=== PATIENT | female | born 1935 | race Caucasian/White ===

== ENCOUNTER 2023-04-06 14:21 | Emergency (ER) | payer MEDICARE ==
[2023-04-06 14:50] VITALS: TEMP 97.5
--- NOTE | 2023-04-06 15:18 | XRAY ---
Indication: Cough. Comparison: None Portable chest demonstrates chronic interstitial lung markings and mild right hemidiaphragm elevation. No focal infiltrate, consolidation, or large effusion. Heart not enlarged. Bony thorax intact with osteopenia, degenerative changes, and right shoulder arthroplasty. Impression: Nonacute chest with chronic features.
--- NOTE | 2023-04-06 15:30 | ERPHSYRPT ---
- History of Present Illness Time Seen by Provider: 04/06/23 14:23 Source: patient, family Exam Limitations: no limitations Patient Subjective Stated Complaint: C/O SOB that has become progressivly worse over the past few nights. Initially started a few weeks ago and patient has completed a medrol dose pack and a 10 day antibiotic. Things were getting better but are "going back the other way now." Triage Nursing Assessment: Patient brought back to ER in a W/C. She is alert and oriented. SOB noted with exertion. Lungs clear. An occassional, dry cough during assessment. Patient reports it is productive at home. Skin is pale. 1+ pitting edema noted to BLE. Physician History: 87-year-old female with history of hypertension, hyperlipidemia, pulmonary fibrosis with chronic breathing, diabetes mellitus presented to the ER with chief complaint of worsening cough and difficulty breathing for the last few weeks. Patient has been evaluated outpatient and has finished course of antibiotics and steroids almost a week ago but for the last few nights her cough is getting worse especially at nighttime. Patient reports coughing up clear to yellow and sometimes brown sputum small in amount. Denies any chest pain or p alpitations but mild increased shortness of breath than usual. Also reports sinus/nasal congestion and soreness in the throat. Allergies/Adverse Reactions: adenosine Allergy (Verified 04/06/23 15:38) amlodipine Allergy (Verified 04/06/23 15:41) amoxicillin Allergy (Verified 04/06/23 15:41) ciprofloxacin Allergy (Verified 04/06/23 15:38) clavulanic acid [From Augmentin] Allergy (Verified 04/06/23 15:41) duloxetine Allergy (Verified 04/06/23 15:38) enalapril Allergy (Verified 04/06/23 15:38) morphine Allergy (Verified 04/06/23 14:23) pregabalin Allergy (Verified 04/06/23 15:41) Sulfa (Sulfonamide Antibiotics) Allergy (Verified 04/06/23 15:41) zolpidem Allergy (Verified 04/06/23 15:41) Home Medications: ALPRAZolam 0.25 MG [xanAX 0.25 MG] 1 tab PO BID 04/06/23 [History] Carbidopa/Levodopa [Carbidopa-Levodopa 10-100 Tab] 1 tab PO TID 04/06/23 [History] Levothyroxine Sodium 75 Mcg [Synthroid 75 Mcg] 1 tab PO DAILY 04/06/23 [History] Losartan Potassium [Cozaar] 1 tab PO DAILY 04/06/23 [History] Nifedipine Xl 30 mg [Adalat CC 30 MG TABLET] 1 tab PO DAILY 04/06/23 [History] Omeprazole 1 tab PO DAILY 04/06/23 [History] Hx Tetanus, Diphtheria Vaccination/Date Given: Yes Hx Influenza Vaccination/Date Given: No Hx Pneumococcal Vaccination/Date Given: Yes Immunizations Up to Date: Yes Travel Risk - International Travel Have you traveled outside of the country in past 3 weeks: No - Coronavirus Screening Are you exhibiting any of the following symptoms?: Yes Symptoms: Cough: New Onset, Shortness of Breath, Headaches/Body Aches/Fatigue Close contact with a COVID-19 positive Pt in past 14-21 Days: No - Vaccine Status Have you recieved a Covid-19 vaccination: Yes Door Operator: Unknown - Vaccination Dates Dates if Unknown: ? - Review of Systems Constitutional: Fatigue Eyes: No Symptoms Ears, Nose, & Throat: Nose Congestion, Throat Swelling Respiratory: Cough, Dyspnea Cardiac: No Symptoms Abdominal/Gastrointestinal: No Symptoms Genitourinary Symptoms: No Symptoms Musculoskeletal: Myalgias Skin: No Symptoms Neurological: No Symptoms Psychological: No Symptoms Endocrine: No Symptoms Hematologic/Lymphatic: No Symptoms - Past Medical History Pertinent Past Medical History: Yes Neurological History: Other Cardiac History: Hypertension Respiratory History: Bronchitis, Pneumonia, Sleep Apnea Endocrine Medical History: Diabetes Type II, Hypothyroidism GI Medical History: GERD, Gallbladder Disease Psycho-Social History: Anxiety, Depression Other Medical History: Parkinsons Disease, Cat Scratch Disease, Pulmonary Fibrosis - Past Surgical History Past Surgical History: Yes Gastrointestinal: Appendectomy, Cholecystectomy Female Surgical History: Hysterectomy, Dilation & Curettage Other Surgical History: right shoulder X 4, neck (titanum plate), lower back - Social History Smoking Status: Never smoker Exposure to second hand smoke: No Drug Use: none Patient Lives Alone: No (son) - Nursing Vital Signs Nursing Vital Signs: Initial Vital Signs Temperature 97.5 F 04/06/23 14:22 Pulse Rate 70 04/06/23 14:22 Respiratory Rate 24 04/06/23 14:22 Blood Pressure 176/73 04/06/23 14:22 O2 Sat by Pulse Oximetry 97 04/06/23 14:22 Pain Scale Pain Intensity 2 - Physical Exam General Appearance: no apparent distress, alert Eye Exam: PERRL/EOMI Ears, Nose, Throat Exam: hearing grossly normal, pharyngeal erythema Neck Exam: normal inspection, non-tender, supple, full range of motion Respiratory Exam: normal breath sounds, rhonchi Cardiovascular/Chest Exam: normal heart sounds, regular rate/rhythm Abdominal/Gastrointestinal Exam: soft, normal bowel sounds, tenderness Extremity Exam: non-tender, normal range of motion Neurologic Exam: alert, oriented x 3, cooperative, cost manager II-XII nml as tested Skin Exam: normal color SpO2 Interpretation: normal SpO2: 97 O2 Delivery: Room Air - Course EKG Interpreted by Me: RATE (74), Sinus Rhythm (Premature arterial complexes), NORMAL AXIS, NORMAL INTERVALS, Non-specific ST Changes Ordered Tests: Active Orders 24 hr Category Date Time Status Supervisor Phosphatic Fertilizer STAT Care 04/06/23 14:57 Completed EKG-ER Only STAT Care 04/06/23 14:56 Completed IV Insertion STAT Care 04/06/23 14:56 Completed CHEST 1 VIEW (PORTABLE) Stat Exams 04/06/23 14:57 Completed BLOOD CULTURE Stat Lab 04/06/23 15:30 Received CBC W DIFF Stat Lab 04/06/23 15:15 Completed CMP Stat Lab 04/06/23 15:15 Completed Lactic Acid Stat Lab 04/06/23 14:56 Completed Lactic Acid Stat Lab 04/06/23 17:36 Received MAGNESIUM Stat Lab 04/06/23 15:15 Completed NT PRO BNPII Stat Lab 04/06/23 15:15 Completed PROCALCITONIN Stat Lab 04/06/23 15:15 Completed TROPONIN Q4H Lab 04/06/23 15:15 Completed Lab/Rad Data: Laboratory Result Diagrams 04/06/23 15:15 04/06/23 15:15 Laboratory Results 04/06/23 04/06/23 04/06/23 Range/Units 15:15 15:15 15:15 WBC (4.0-10.5) x10^3/uL RBC (4.1-5.4) x10^6/uL Hgb (12.0-16.0) g/dL Hct (35-47) % MCV (78-100) fL MCH (26-32) pg MCHC (32-36) g/dL RDW (11.5-14.0) % Plt Count (150-450) x10^3/uL MPV (7.5-11.0) fL Gran % (36.0-66.0) % Immature Gran % (Auto) (0.00-0.4) % Nucleat RBC Rel Count (0.00-0.1) % Eos # (Auto) (0-0.5) x10^3/uL Immature Gran # (Auto) (0.00-0.03) x10^3u/L Absolute Lymphs (auto) (1.0-4.6) x10^3/uL Absolute Monos (auto) (0.0-1.3) x10^3/uL Absolute Nucleated RBC (0.00-0.01) x10^3u/L Lymphocytes % (24.0-44.0) % Monocytes % (0.0-12.0) % Eosinophils % (0.00-5.0) % Basophils % (0.0-0.4) % Absolute Granulocytes (1.4-6.9) x10^3/uL Basophils # (0-0.4) x10^3/uL Sodium 139 (137-145) mmol/L Potassium 3.8 (3.5-5.1) mmol/L Chloride 104 (98-107) mmol/L Carbon Dioxide 23 (22-30) mmol/L Anion Gap 15.4 H (5-15) MEQ/L BUN 18 H (7-17) mg/dL Creatinine 0.69 (0.52-1.04) mg/dL Estimated GFR 82.9 ML/MIN Glucose 109 H (74-106) mg/dL Lactic Acid (0.4-2.0) Calcium 9.7 (8.4-10.2) mg/dL Magnesium 1.7 (1.6-2.3) mg/dL Total Bilirubin 0.70 (0.2-1.3) mg/dL AST 29 (14-36) U/L ALT 21 (0-35) U/L Alkaline Phosphatase 83 (38-126) U/L Troponin I < 0.012 (0.000-0.034) ng/mL NT-Pro-B Natriuret Pep 305 (<300) pg/mL Serum Total Protein 7.1 (6.3-8.2) g/dL Albumin 4.0 (3.5-5.0) g/dL Procalcitonin 0.073 (0.030-0.080) ng/mL Influenza Type A Ag (NEGATIVE) Influenza Type B Ag (NEGATIVE) RSV (PCR) (NEGATIVE) SARS-CoV-2 (PCR) (NEGATIVE) 04/06/23 04/06/23 04/06/23 Range/Units 15:15 15:12 14:56 WBC 11.7 H (4.0-10.5) x10^3/uL RBC 4.49 (4.1-5.4) x10^6/uL Hgb 14.2 (12.0-16.0) g/dL Hct 44.5 (35-47) % MCV 99.1 (78-100) fL MCH 31.6 (26-32) pg MCHC 31.9 L (32-36) g/dL RDW 13.4 (11.5-14.0) % Plt Count 152 (150-450) x10^3/uL MPV 11.3 H (7.5-11.0) fL Gran % 71.3 H (36.0-66.0) % Immature Gran % (Auto) 0.5 H (0.00-0.4) % Nucleat RBC Rel Count 0.0 (0.00-0.1) % Eos # (Auto) 0.11 (0-0.5) x10^3/uL Immature Gran # (Auto) 0.06 H (0.00-0.03) x10^3u/L Absolute Lymphs (auto) 2.10 (1.0-4.6) x10^3/uL Absolute Monos (auto) 1.01 (0.0-1.3) x10^3/uL Absolute Nucleated RBC 0.00 (0.00-0.01) x10^3u/L Lymphocytes % 18.0 L (24.0-44.0) % Monocytes % 8.7 (0.0-12.0) % Eosinophils % 0.9 (0.00-5.0) % Basophils % 0.6 (0.0-0.4) % Absolute Granulocytes 8.31 H (1.4-6.9) x10^3/uL Basophils # 0.07 (0-0.4) x10^3/uL Sodium (137-145) mmol/L Potassium (3.5-5.1) mmol/L Chloride (98-107) mmol/L Carbon Dioxide (22-30) mmol/L Anion Gap (5-15) MEQ/L BUN (7-17) mg/dL Creatinine (0.52-1.04) mg/dL Estimated GFR ML/MIN Glucose (74-106) mg/dL Lactic Acid 2.1 H (0.4-2.0) Calcium (8.4-10.2) mg/dL Magnesium (1.6-2.3) mg/dL Total Bilirubin (0.2-1.3) mg/dL AST (14-36) U/L ALT (0-35) U/L Alkaline Phosphatase (38-126) U/L Troponin I (0.000-0.034) ng/mL NT-Pro-B Natriuret Pep (<300) pg/mL Serum Total Protein (6.3-8.2) g/dL Albumin (3.5-5.0) g/dL Procalcitonin (0.030-0.080) ng/mL Influenza Type A Ag NEGATIVE (NEGATIVE) Influenza Type B Ag NEGATIVE (NEGATIVE) RSV (PCR) NEGATIVE (NEGATIVE) SARS-CoV-2 (PCR) NEGATIVE (NEGATIVE) - Progress Progress: improved, re-examined Air Movement: good Progress Note: 04/06/23 16:52 87-year-old female with history of hypertension, hyperlipidemia, pulmonary fibrosis with chronic breathing, diabetes mellitus presented to the ER with chief complaint of worsening cough and difficulty breathing for the last few weeks. Patient has been evaluated outpatient and has finished course of antibiotics and steroids almost a week ago but for the last few nights her cough is getting worse especially at nighttime. Patient reports coughing up clear to yellow and sometimes brown sputum small in amount. Denies any chest pain or palpitations but mild increased shortness of breath than usual. Also reports sinus/nasal congestion and soreness in the throat. Patient is not in any distress. Lungs fairly clear to auscultation. Chest x- ray negative. Normal white count, lactate of 2.1 with a normal procalcitonin. Chemistries fairly unremarkable. Negative troponins. Negative flu COVID and RSV. Patient is given DuoNeb, on reevaluation feeling better and eating supper. Patient is maintaining oxygen saturation around 96% on room air. With her history of pulmonary fibrosis and recurrent recent infections I believe patient is having some element of bronchitis, will treat with albuterol inhaler and a Z- Brady. Recommended outpatient follow-up. Discussed signs symptoms of worsening needing return to ER which she seems understanding. Stable for discharge. Blood Culture(s) Obtained: Yes Antibiotics given: Yes Counseled pt/family regarding: lab results, diagnosis, need for follow-up, rad results Medical Desision Making - Independent Historian Additional History obtained from: Child - Diagnostic Testing Diagnostic test were ordered, analyzed, and reviewed by me: Yes Radiological Interpretation: Reviewed by me - Risk of complications The pt has a mod risk of morbidity or mortality based on: Need for prescription drug management - Departure Departure Disposition: Home Clinical Impression: Acute bronchitis Condition: Stable Critical Care Time: No Referrals: SARAVANAN OCONNOR [Primary Care Provider] - Follow up with PCP 1 day Instructions: Acute Bronchitis, Adult (DC) Additional Instructions: Follow-up with primary care for reevaluation. Use inhaler as needed. Return to ER for difficulty breathing, worsening cough or if having fever chills etc. Prescriptions: Albuterol Sulfate [Albuterol Sulfate Hfa] 8.5 gm IH Q6H PRN 7 Days #1 inh PRN Reason: Cough Azithromycin 250 mg [Zithromax 250 MG TABLET] 250 mg PO ZPACK #6 tablet
[2023-04-06 15:48] LABS: Absolute Neutrophil Ct (ANC) 8.31 x10^3/uL (1.4-6.9); BASOPHIL % 0.6 % (0.0-0.4); Basophil (Absolute #) 0.07 x10^3/uL (0-0.4); Eosinophil % 0.9 % (0.00-5.0); Eosinophil (Absolute #) 0.11 x10^3/uL (0-0.5); Hematocrit 44.5 % (35-47); Hemoglobin 14.2 g/dL (12.0-16.0); IMMATURE GRAN # 0.06 x10^3u/L (0.00-0.03); IMMATURE GRAN % 0.5 % (0.00-0.4); Mean Cell Volume 99.1 fL (78-100); Mean Corpuscular Hemoglobin 31.6 pg (26-32); Mean Corpuscular Hgb Concent. 31.9 g/dL (32-36); Mean Platelet Volume 11.3 fL (7.5-11.0); Monocyte (Absolute #) 1.01 x10^3/uL (0.0-1.3); Monocytes % 8.7 % (0.0-12.0); Neutrophil % 71.3 % (36.0-66.0); Platelet Count 152 x10^3/uL (150-450); Red Blood Count 4.49 x10^6/uL (4.1-5.4); Red Cell Distribution Width 13.4 % (11.5-14.0); White Blood Count 11.7 x10^3/uL (4.0-10.5)
[2023-04-06 16:03] LABS: ANION GAP 15.4 MEQ/L (5-15); BILIRUBIN,TOTAL 0.7 mg/dL (0.2-1.3); Calcium 9.7 mg/dL (8.4-10.2); Creatinine 1 0.69 mg/dL (0.52-1.04); EST GLOMERULAR FILTRATION RATE 82.9 ML/MIN; MAGNESIUM 1.7 mg/dL (1.6-2.3); Potassium 3.8 mmol/L (3.5-5.1); Total Protein 7.1 g/dL (6.3-8.2)
[2023-04-06 16:19] LABS: PROCALCITONIN 0.073 ng/mL (0.030-0.080)
[2023-04-06 16:24] LABS: INFLUENZA A NEGATIVE (NEGATIVE); INFLUENZA B NEGATIVE (NEGATIVE); RESPIRATORY SYNCTIAL VIRUS NEGATIVE (NEGATIVE); SARS-CoV-2 Xpert Express NEGATIVE (NEGATIVE)
[2023-04-06 16:57] VITALS: O2SAT 97
[2023-04-06 17:00] VITALS: BP 173/70; PULSE 74; RESP 24
== END 2023-04-06 17:15 | disposition home or self-care (01) ==
LOC: ED 14:21
DX: J20.9 Acute bronchitis, unspecified (principal); R05.9 Cough, unspecified; R06.02 Shortness of breath; J02.9 Acute pharyngitis, unspecified; I10 Essential (primary) hypertension; E11.9 Type 2 diabetes mellitus without complications; Z79.899 Other long term (current) drug therapy; Z20.828 Contact with and (suspected) exposure to other viral communicable diseases
CPT/HCPCS: 0241U; 36000; 36415; 71045; 80053; 83605; 83735; 83880; 84145; 84484; 85025; 87040; 93005; 93041; 99284